=== PATIENT | male | born 1990 | race Caucasian/White ===

== ENCOUNTER 2024-08-11 06:03 | Emergency (ER) | payer BC ==
[2024-08-11] MEDS: Ibuprofen 600 MG Tab PO ONE (07:37)
[2024-08-11 08:23] LABS: APPEARANCE,URINE CLEAR; BILIRUBIN,URINE NEGATIVE (NEGATIVE); COLOR,URINE YELLOW; GLUCOSE,URINE NEGATIVE (NEGATIVE); KETONES,URINE NEGATIVE (NEGATIVE); LEUKOCYTE ESTERASE,URINE NEGATIVE (NEGATIVE); NITRITE,URINE NEGATIVE (NEGATIVE); OCCULT BLOOD,URINE NEGATIVE (NEGATIVE); PROTEIN,URINE NEGATIVE (NEGATIVE); UROBILINOGEN,URINE 0.2 EU/dL (<2.0)
[2024-08-11 09:47] LABS: C. TRACHOMATIS BY PCR NOT DETECTED; N. GONORRHOEAE BY PCR NOT DETECTED
[2024-08-11 10:29] VITALS: BP 145/83; PULSE 57
== END 2024-08-11 08:29 | disposition home or self-care (01) ==
LOC: MW.ED 06:03
DX: N50.819 Testicular pain, unspecified (principal)
CPT/HCPCS: 76870; 81003; 87491; 87591; 93976; 99284; A9270

== ENCOUNTER 2024-09-05 08:25 | Day surgery (SDC) | payer BC ==
[2024-09-05] MEDS ORDERED: propofoL 50 ML ONE (09:25)
[2024-09-05] MEDS ORDERED: Lidocaine 2% 5 ML SDV ONE (09:25)
[2024-09-05] MEDS ORDERED: Benzocaine 20% Topical Spray UD ONE (09:32)
[2024-09-05] MEDS: Lactated Ringers 1,000 ML IV SCH (09:48)
[2024-09-05] MEDS ORDERED: Propofol 200 MG/20 ML SDV ONE (10:12)
[2024-09-05 11:59] VITALS: BP 119/71; PULSE 55
== END 2024-09-05 11:40 | disposition home or self-care (01) ==
LOC: MW.SDS 08:25
PROVIDERS: ATTEND Surgery
DX: K31.7 Polyp of stomach and duodenum (principal); K21.00 Gastro-esophageal reflux disease with esophagitis, without bleeding; K64.8 Other hemorrhoids; F41.9 Anxiety disorder, unspecified; E78.00 Pure hypercholesterolemia, unspecified; Z87.891 Personal history of nicotine dependence; Z79.899 Other long term (current) drug therapy
CPT/HCPCS: 43239; 45380; A9270; J2704; J7120; 00813; J3490

== ENCOUNTER 2025-10-08 05:54 | Emergency (ER) | payer BC ==
[2025-10-08 06:26] LABS: BASOPHILS ABSOLUTE AUTO 0.06 K/uL (0.00-0.20); BASOPHILS PERCENT AUTO 0.8 % (0.0-1.0); EOSINOPHILS ABSOLUTE AUTO 0.14 K/uL (0.00-0.45); EOSINOPHILS PERCENT AUTO 1.9 % (0.0-6.0); IMMATURE GRAN ABSOLUTE AUTO 0.05 K/uL (0.00-0.05); IMMATURE GRAN PERCENT AUTO 0.7 % (0.0-0.4); LYMPHOCYTES ABSOLUTE AUTO 2.35 K/uL (1.00-4.80); LYMPHOCYTES PERCENT AUTO 31.6 % (24.0-44.0); MEAN PLATELET VOLUME 9.3 fL (9.4-12.4); MONOCYTES ABSOLUTE AUTO 0.62 K/uL (0.00-0.80); MONOCYTES PERCENT AUTO 8.3 % (0.0-8.0); NEUTROPHILS ABSOLUTE AUTO 4.22 K/uL (1.80-7.70); NEUTROPHILS PERCENT AUTO 56.7 % (41.0-71.0); NRBC ABSOLUTE 0.00 K/uL (0.00-0.02); NRBC PERCENT 0.0 /100WBC (0.0-0.2); PLATELET COUNT,PLT 166 K/uL (150-400); RED BLOOD CELL COUNT 5.71 M/uL (4.52-5.90); WHITE BLOOD CELL COUNT,WBC 7.44 K/uL (3.9-11.3)
[2025-10-08] MEDS: Ondansetron 4 MG/2 ML SDV IVPUSH ONE (06:29)
[2025-10-08 06:32] LABS: APPEARANCE,URINE CLEAR; GLUCOSE,URINE NEGATIVE (NEGATIVE); OCCULT BLOOD,URINE NEGATIVE (NEGATIVE)
[2025-10-08 06:43] LABS: A/G RATIO 1.1 (0.9-1.6); ALANINE AMINOTRANSFERASE,ALT 51.0 IU/L (14-63); ASPARTATE AMNIOTRANSFERASE,AST 35.0 IU/L (15-37); BILIRUBIN TOTAL 0.6 mg/dL (0.2-1.0); BLOOD UREA NITROGEN,BUN 24.0 mg/dL (7.0-18.0); CARBON DIOXIDE,CO2 28.6 mmol/L (21.0-32.0); CHLORIDE,CL 105.0 mmol/L (98-107); CREATININE 1.7 mg/dL (0.8-1.3); EST CRCL DRUG DOSING (CG) 69.19 mL/min; GLUCOSE RANDOM 95.0 mg/dL (74-106); POTASSIUM,K 4.3 mmol/L (3.5-5.1); PROTEIN TOTAL,TP 8.0 g/dL (6.4-8.2); SODIUM,NA 141.0 mmol/L (136-148)
[2025-10-08 06:44] LABS: ESTIMATED GFR 54.0 mL/min (>60)
[2025-10-08] MEDS: Iopamidol 755 MG/ML 500 ML Multipack Bottle IVPUSH STA (07:00)
[2025-10-08] MEDS ORDERED: Ketorolac 30 MG/ML SDV IVPUSH ONE (07:28)
[2025-10-08] MEDS: Ketorolac 30 MG/ML SDV IVPUSH ONE (07:42)
[2025-10-08 07:46] VITALS: BP 138/80; PULSE 50
== END 2025-10-08 09:32 | disposition home or self-care (01) ==
LOC: MW.ED 05:54
DX: R10.31 Right lower quadrant pain (principal); K21.9 Gastro-esophageal reflux disease without esophagitis; Z79.899 Other long term (current) drug therapy
CPT/HCPCS: 36415; 74177; 76870; 80053; 81003; 85025; 93976; 96374; 96375; 99284; J1885; J2405; Q9967; J1171